=== PATIENT | male | born 1990 | race Caucasian/White ===

== ENCOUNTER 2016-09-25 22:11 | Emergency (ER) | payer OTHER ==
[2016-09-25 22:17] VITALS: BP 138/81
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
== END 2016-09-26 00:16 ==
LOC: ERH 22:11
DX: S61.412A Laceration without foreign body of left hand, initial encounter (principal); W25.XXXA Contact with sharp glass, initial encounter; Y93.89 Activity, other specified; Y92.9 Unspecified place or not applicable